=== PATIENT | female | born 1995 | race Caucasian/White ===

== ENCOUNTER 2018-09-19 06:50 | Inpatient (IN) | payer OTHER ==
[~2018-09-19] VITALS: Ht 172.7 cm; Wt 87.3 kg
[2018-09-19] VITALS (12 sets, daily range): BP systolic 107–142; BP diastolic 61–90; PULSE 64–91; TEMP 97.8–98.8
[2018-09-19 07:42] LABS: BASO % 0.2 % (0.0-2.0); EOS % 0.1 % (0-4.0); GRAN # 10.9 (1.4-6.5); GRAN % 85.1 % (42.2-75.2); HEMATOCRIT 34.5 % (37.0-47.0); HEMOGLOBIN 11.5 g/dl (12.5-16.0); LYMPH # 1.4 (1.2-3.4); LYMPH % 11.1 % (20.0-51.0); MEAN CELL VOLUME 88 fl (80.0-100.0); MEAN CORPUSCULAR HEMOGLOBIN 29 pg (27.0-31.0); MEAN CORPUSCULAR HGB CONC 33 g/dl (33.0-37.0); MEAN PLATELET VOLUME 10.1 fl (7.4-10.4); MONO # 0.4 (0.1-0.6); MONO % 2.9 % (1.7-9.3); PLATELET COUNT 174 K/mm3 (130-400); RED BLOOD COUNT 3.91 M/mm3 (4.10-5.30); REDCELL DISTRIBUTION WIDTH-CV 13.7 % (11.5-14.5)
--- NOTE | 2018-09-19 07:45 | NUR ---
Noted with increased bleeding post delivery, with moderate amount of clots, reported to . requests start of pitocin if patient agreed. Nurse discussed with patient, patient agrees to pitocin, started per protocol. Will continue to monitor bleeding.
--- NOTE | 2018-09-19 08:47 | NUR ---
0640 [employer] CALLED AT THIS TIME. STATING SHE HAD A PATIENT OF [place] THAT HAS BEEN LABORING SINCE MIDNIGHT AND THAT HAD RUPTURED AT 0500 THIS MORNING WITH THICK MECONIUM,AND SHE BELIEVES THE BABY IS BREECH. PATIENT IS HAVING LOTS OF PRESSURE. 0650 PATIENT HERE WITH AND [employer]. FEELING PRESSURE. SVE BY THIS NURSE APPEARS TO BE VERTEX, WITH THICK MECONIUM. [facility] CONFIRM VERTEX PRESENTATION. SVE BY DR MORGAN.. DISCUSSES OPTIONS WITH PATIENT. INSTRUCTED ON PUSHING WITH EACH CONTRACTION. IV STARTED IN RIGHT HAND PER S ARIES. EFM ON CONTRACTIONS 2 MIN APART. FHT 140 BABY ACTIVE. 0700 PATIENT STARTES PUSHING WITH EACH CONTRACTION. FHT 140'S WITH VARIABLES NOTED. 0705 ROLES AT BEDSIDE FOR DELIVERY. PATIENT AND REFUSE PITOCIN AFTER DELIVERY AND MEDS FOR BABY. WILL HAVE THEM SIGN REFUSEL CONSENT. 0717 BABY GIRL DELIVERED AT THIS TIME PER DR MORGAN. BABY TO MOMS CHEST. CORD CLAMPED AND CUT BY DR MORGAN. STRONG CRY NOTED. 0726 PLACENTA DELIVERED AT THIS TIME PER DR MORGAN. BLEEDING WNL AT THIS TIME. NO REPAIR NEEDED. FUNDUS FIRM. BABY REMAINS ON MOMS CHEST. 0730 REPORT GIVEN TO A MURROW TO ASSUME CARE OF MOM AND BABY AT THIS TIME.
--- NOTE | 2018-09-19 16:30 | NUR ---
Rests in bed, alert, holding baby. Denies any pain at this time.
[2018-09-20] VITALS: BP 124/85; PULSE 85; TEMP 97.8
[2018-09-20] MEDS ORDERED: IBU600 MG PO (07:33)
[2018-09-20 07:50] VITALS: BP 102/68; PULSE 78; TEMP 98.1
--- NOTE | 2018-09-20 09:58 | NUR ---
Initial visit; Mom thanked [employer] for offering congratulations and God's blessings for the of their daughter. [employer] thanked family for choosing [facility].
== END 2018-09-20 12:00 | disposition home or self-care (01) | DRG 807 ==
LOC: OB 06:50 → LDR 06:50 → OB 10:30
PROVIDERS: ADMIT Obstetrics & Gynecology
PROC: 10E0XZZ Delivery of Products of Conception, External Approach (ICD-10-PCS; principal; 2018-09-19)
DX: O77.0 Labor and delivery complicated by meconium in amniotic fluid (principal); Z37.0 Single live birth; O64.0XX0 Obstructed labor due to incomplete rotation of fetal head, not applicable or unspecified; Z3A.39 39 weeks gestation of pregnancy
CPT/HCPCS: J2590; J7120